=== PATIENT | female | born 1970 | race Caucasian/White ===

== ENCOUNTER 2020-09-07 19:25 | Inpatient (IN) | payer OTHER, SELFPAY ==
[~2020-09-07] VITALS: Ht 162.6 cm; Wt 125.2 kg
--- NOTE | 2020-09-07 19:34 | NUR ---
PT CHAZ BOJORQUEZS. TAKEN TO TENT
[2020-09-07 19:40] VITALS: BP 124/89
--- NOTE | 2020-09-07 20:40 | NUR ---
ASK THE FAMILY MEMBERS TO BRING THE LIST OF MEDICATIONS.
[2020-09-07 20:41] LABS: BASOPHILS % (AUTO) 0.1 % (0.0-2.0); HEMATOCRIT 40.4 % (36-48); HEMOGLOBIN 13.4 g/dL (12.0-16.0); LYMPHOCYTES # (AUTO) 0.8 K/uL (2.5-16.5); LYMPHOCYTES % (AUTO) 8.9 % (20.5-51.1); MEAN CORPUSCULAR HEMOGLOBIN 27 pg (27-31); MEAN CORPUSCULAR HGB CONC 33 g/dL (33-37); MEAN CORPUSCULAR VOLUME 79.7 fL (80-94); MONOCYTES # (AUTO) 0.6 K/uL (0.8-1.0); MONOCYTES % (AUTO) 6.9 % (1.7-9.3); NEUTROPHILS # (AUTO) 7.3 K/uL (1.8-7.7); NEUTROPHILS % (AUTO) 84.1 % (42.2-75.2); PLATELET COUNT (AUTO) 272 K/uL (140-450); RED BLOOD CELL COUNT(AUTO) 5.06 MIL/uL (4.20-5.40); RED CELL DISTRIBUTION WIDTH 16.4 % (11.6-13.7); WHITE BLOOD COUNT (AUTO) 8.7 K/uL (4.8-10.8)
[2020-09-07 21:05] LABS: PROTHROMBIN TIME 10.3 secs (10.8-13.4)
[2020-09-07 21:09] LABS: ALBUMIN 2.6 g/dL (3.4-5.0); ANION GAP 20.6 (8-16); CARBON DIOXIDE 22.9 mmol/L (21-32); CREATININE 0.8 mg/dL (0.6-1.3); POTASSIUM 3.5 mmol/L (3.5-5.1); TOTAL BILIRUBIN 0.6 mg/dL (0.0-1.0)
[2020-09-07 21:15] LABS: C-REACTIVE PROTEIN QUANT 26.2 mg/dL (0.0-0.9)
[2020-09-07 21:33] LABS: LACTATE DEHYDROGENASE 448 U/L (81-234)
--- NOTE | 2020-09-07 22:13 | NUR ---
JOSY SWAB COLLECTED AND TAKEN TO LAB
[2020-09-07] MEDS ORDERED: METOCLOPRAMIDE 10 MG/2 ML INJ VIAL IVP PRN (22:35)
[2020-09-07] MEDS ORDERED: DEXTROSE 50% 50 ML SYR IVP PRN (22:40)
--- NOTE | 2020-09-08 00:58 | NUR ---
PT MOVED FROM TENT TO BED 3.
--- NOTE | 2020-09-08 01:00 | NUR ---
PT NOTED WITH O2 SAT AT 88% ON 10 L VIA NC. PT WAS PLACED ON NON-REBREATHER AT 10 L OF OXYGEN. SPO2 AT 93% TOLERATING WELL.
--- NOTE | 2020-09-08 01:47 | NUR ---
20 G IV SITE ESTABLISHED TO L AC. SITE WAS PATENT FLUSHED WITH 10 ML OF 0.9% NS. NO SWELLING, REDNESS OR C/O DISCOMFORT.
--- NOTE | 2020-09-08 01:49 | NUR ---
PT STATES, "I CANNOT GO TO THE BATHROOM RIGHT NOW BUT I WILL CALL YOU". WILL CONTINUE TO MONITOR.
--- NOTE | 2020-09-08 03:11 | NUR ---
HELPED PT TO BEDSIDE COMMODE, UA COLLECTED AND TAKEN TO LAB.
--- NOTE | 2020-09-08 03:15 | NUR ---
PT C/O SEVERE ANXIETY R/T FEELING OF BEING "UNABLE TO BREATH". PAGED DR. DUMONT AT . [facility]ER STATED SHE WILL PAGE
[2020-09-08 03:17] LABS: APPEARANCE,URINE SL CLOUDY (CLEAR); BILIRUBIN,URINE 1+ (NEGATIVE); BLOOD, URINE 3+ (NEGATIVE); COLOR,URINE YELLOW (YELLOW); LEUKOCYTE ESTERASE ,URINE NEGATIVE (NEGATIVE); NITRITE, URINE NEGATIVE (NEGATIVE); UGLUCOSE 2+ (NEGATIVE)
--- NOTE | 2020-09-08 03:18 | NUR ---
RECEIVED PAGED FROM DR. YAN AND GAVE NEW ORDER FOR XANAX 0.25MG X 1 NOW.
[2020-09-08] MEDS ORDERED: ALPRAZolam 0.25 MG TAB PO SCH (03:20)
[2020-09-08] MEDS ORDERED: ALPRAZolam 0.5 MG TAB ONE (03:22)
[2020-09-08 03:29] LABS: RBC,URINE TOO NUMEROUS TO COUN /HPF (0-5); WBC,URINE 0-5 /HPF (0-5)
--- NOTE | 2020-09-08 04:16 | NUR ---
RESIDENTIAL RECYCLE DRIVER MICHELINE AT BEDSIDE FOR BLOOD DRAW.
--- NOTE | 2020-09-08 05:05 | NUR ---
PT SITTING IN BED QUIETLY AT THIS TIME, VSS. NO C/O RESTLESNESS/ANXIETY. SPO2 AT 93% VIA NON-REBREATHER AT 7 L OF OXYGEN. HEART SOUNDS EVEN AND REGULAR. OM CARDIAC MONITORING, PULSE OXIMETRY AND BP MONITORING. ALL NEEDS MEET PRIOR TO EXIT. BED LOCKED AND LEFT IN LOWEST POSITION.
[2020-09-08 06:20] LABS: BASOPHILS % (AUTO) 0.2 % (0.0-2.0); HEMATOCRIT 41.8 % (36-48); HEMOGLOBIN 13.9 g/dL (12.0-16.0); LYMPHOCYTES # (AUTO) 0.8 K/uL (2.5-16.5); LYMPHOCYTES % (AUTO) 11.3 % (20.5-51.1); MEAN CORPUSCULAR HEMOGLOBIN 27 pg (27-31); MEAN CORPUSCULAR HGB CONC 33 g/dL (33-37); MONOCYTES # (AUTO) 0.8 K/uL (0.8-1.0); MONOCYTES % (AUTO) 10.1 % (1.7-9.3); NEUTROPHILS # (AUTO) 5.9 K/uL (1.8-7.7); NEUTROPHILS % (AUTO) 78.4 % (42.2-75.2); PLATELET COUNT (AUTO) 268 K/uL (140-450); RED BLOOD CELL COUNT(AUTO) 5.23 MIL/uL (4.20-5.40); WHITE BLOOD COUNT (AUTO) 7.5 K/uL (4.8-10.8)
--- NOTE | 2020-09-08 06:25 | NUR ---
NOVAL PCR, INFLUENZA A & B, AND RSV SWABS COLLECTED AND SENT TO LAB.
--- NOTE | 2020-09-08 07:18 | NUR ---
REPORT GIVEN TO TOMAS DYSON FOR CONTINUITY OF CARE.
[2020-09-08 07:38] LABS: ALBUMIN 2.5 g/dL (3.4-5.0); ANION GAP 22.3 (8-16); CARBON DIOXIDE 20.9 mmol/L (21-32); CREATININE 0.8 mg/dL (0.6-1.3); POTASSIUM 3.2 mmol/L (3.5-5.1); TOTAL BILIRUBIN 0.6 mg/dL (0.0-1.0)
[2020-09-08] MEDS: BUDESONIDE 0.5 MG/2 ML NEBU INH SCH ×2 (07:41→19:30)
[2020-09-08] MEDS: ALBUTEROL SULFATE/IPRATROPIU 3 ML SOL IH SCH ×3 (07:41→19:00)
[2020-09-08] MEDS ORDERED: remdesivir COMMUNICATION ORDER 1 EA MISC MC PRN (07:55)
[2020-09-08] MEDS: INSULIN LANTUS 100 UNITS/ML 10 ML VIAL SUBQ SCH ×2 (09:00→21:00)
[2020-09-08] MEDS ORDERED: LOVENOX 1MG/KG Q12H SUBQ SCH ×2 (09:00→21:00)
[2020-09-08] MEDS: BLOOD GLUCOSE MONITORING 1 DEV DEV FS SCH ×4 (09:48→21:00)
[2020-09-08] MEDS: DOCUSATE SODIUM 100 MG GELCAP PO SCH (09:53)
[2020-09-08] MEDS: FAMOTIDINE 20 MG TAB PO SCH ×2 (09:53→21:00)
[2020-09-08] MEDS: INSULIN LISPRO SLIDING SCALE 100 UNITS/ML VIAL SUBQ PRN ×4 (10:05→21:00)
[2020-09-08] MEDS: ENOXAPARIN 120 MG/0.8 ML SYR SUBQ SCH ×2 (10:06→21:00)
[2020-09-08 10:09] LABS: RSV NEGATIVE (NEGATIVE)
[2020-09-08] MEDS: ACETAMINOPHEN 325 MG TAB PO PRN (10:21)
--- NOTE | 2020-09-08 10:31 | NUR ---
MEDICATED WITH 650MG TYLENOL PO FOR BUTTOCK PAIN. PT REPOSITIONED RIGHT SIDE
[2020-09-08] MEDS ORDERED: remdesivir CLINICAL MONITORING 1 EA MISC MC PRN (11:50)
--- NOTE | 2020-09-08 13:48 | NUR ---
PT UP AND VOIDED PER BED BEAL 1300CC OUT PUT. LEFT AC PIV PT STATES HURTS IV DCD CATH INTACT DRSG APPLIED NEW 20G PIV TO LEFT HAND X1 WITHOUT INCIDENT
[2020-09-08] MEDS ORDERED: REMDESIVIR (EUA) 200 MG in NACL 0.9% 100 ML IV SCH (14:00)
[2020-09-08] MEDS ORDERED: FLUCONAZOLE 100 MG TAB PO SCH (15:40)
[2020-09-08] MEDS: LORazepam 1 MG TAB PO PRN (15:47)
[2020-09-08] MEDS: NYSTATIN CRE 100 MU/GM 15 GM TUBE TP SCH (16:26)
--- NOTE | 2020-09-08 19:30 | NUR ---
RECEIVED REPORT FROM TOMAS DYSON FOR CONTINUITY OF CARE.
--- NOTE | 2020-09-08 20:00 | NUR ---
PT PRESENTS SITTING IN BED, IN NO ACUTE DISTRESS NOTED. BREATHING EVEN AND UNLABORED EVIDENCE BY RISE AND FALL OF CHEST WALL. ON A NON-REBREATHER AT 15 L OF OXYGEN O2 SAT AT 94%. NO FLUIDS AT THIS TIME. REMAINS ON CARDIAC MONITORING, BP MONITORING AND PULSE OXIMETRY. BED LOCKED AND IN LOWEST POSITION.
--- NOTE | 2020-09-08 20:05 | NUR ---
PT WAS RE-OFFERED HER DINNER AT THIS TIME. STATES, "NO I AM OKAY I DONT WANT IT".
--- NOTE | 2020-09-08 20:07 | NUR ---
PT WAS GIVEN A FRESH PITCHER OF COLD WATER PER REQUEST.
--- NOTE | 2020-09-08 20:54 | NUR ---
PT WAS ASSISTED TO BEDSIDE COMMODE. PT TOLERATED WELL VOIDED 300 ML OF YELLOW URINE. PT WAS PLACED AGAIN ON BEDSIDE MONITORING. WILL CONTINUE TO MONITOR.
--- NOTE | 2020-09-08 22:54 | NUR ---
PT LAYING IN BED AT THIS TIME BREATHING EVEN AND UNLABORED EVIDENCE BY RISE AND FALL OF CHEST WALL. ON NON-REBREATHER MASK AT THIS TIME 15 L OF OXYGEN. O2 SAT 94%. HEART RATE 114. DENIES HAVING ANY C/O PAIN OR DISCOMFORT AT THIS TIME ADJUSTED THE HOB TO COMFORTABLE HEIGHT. REMAINS ON BEDSIDE MONITORING. WILL CONT TO MONITOR, CALL LIGHT WITHIN REACH. ALL NEEDS MEET PRIOR TO EXIT.
--- NOTE | 2020-09-09 00:34 | NUR ---
PT LAYING IN BED AT THIS TIME BREATHING EVEN AND UNLABORED EVIDENCE BY RISE AND FALL OF CHEST WALL. ON NON-REBREATHER MASK AT THIS TIME 15 L OF OXYGEN. O2 SAT 92%. HEART RATE 118. DENIES HAVING ANY C/O PAIN OR DISCOMFORT AT THIS TIME ADJUSTED THE HOB TO COMFORTABLE HEIGHT. REMAINS ON BEDSIDE MONITORING. WILL CONT TO MONITOR, CALL LIGHT WITHIN REACH. ALL NEEDS MEET PRIOR TO EXIT.
[2020-09-09] MEDS: ALBUTEROL SULFATE/IPRATROPIU 3 ML SOL IH SCH ×5 (01:00→19:00)
--- NOTE | 2020-09-09 01:25 | NUR ---
HELPED PT TO BEDSIDE COMMODE. TOLERATED WELL.
--- NOTE | 2020-09-09 02:45 | NUR ---
PT WAS GIVEN A FRESH PITCHER OF COLD WATER PER REQUEST.
--- NOTE | 2020-09-09 03:05 | NUR ---
PT LAYING IN BED AT THIS TIME BREATHING EVEN AND UNLABORED EVIDENCE BY RISE AND FALL OF CHEST WALL. ON NON-REBREATHER MASK AT THIS TIME 15 L OF OXYGEN. O2 SAT 95%. HEART RATE 106. DENIES HAVING ANY C/O PAIN OR DISCOMFORT AT THIS TIME ADJUSTED THE HOB TO COMFORTABLE HEIGHT. REMAINS ON BEDSIDE MONITORING. WILL CONT TO MONITOR, CALL LIGHT WITHIN REACH. ALL NEEDS MEET PRIOR TO EXIT.
--- NOTE | 2020-09-09 03:45 | NUR ---
HELPED PT TO BEDSIDE COMMODE. TOLERATED WELL.
--- NOTE | 2020-09-09 05:21 | NUR ---
PT LAYING IN BED AT THIS TIME BREATHING EVEN AND UNLABORED EVIDENCE BY RISE AND FALL OF CHEST WALL. ON NON-REBREATHER MASK AT THIS TIME 15 L OF OXYGEN. O2 SAT 93%. HEART RATE 102. DENIES HAVING ANY C/O PAIN OR DISCOMFORT AT THIS TIME ADJUSTED THE HOB TO COMFORTABLE HEIGHT. REMAINS ON BEDSIDE MONITORING. WILL CONT TO MONITOR, CALL LIGHT WITHIN REACH. ALL NEEDS MEET PRIOR TO EXIT.
--- NOTE | 2020-09-09 06:03 | NUR ---
HELPED PT TO BEDSIDE COMMODE. TOLERATED WELL.
--- NOTE | 2020-09-09 07:20 | NUR ---
REPORT GIVEN TO LALIT DYSON FOR CONTINUITY OF CARE.
[2020-09-09] MEDS: BLOOD GLUCOSE MONITORING 1 DEV DEV FS SCH ×4 (07:30→21:00)
[2020-09-09] MEDS: BUDESONIDE 0.5 MG/2 ML NEBU INH SCH ×3 (07:30→19:30)
[2020-09-09] MEDS: INSULIN LANTUS 100 UNITS/ML 10 ML VIAL SUBQ SCH ×2 (09:00→21:00)
[2020-09-09] MEDS: DOCUSATE SODIUM 100 MG GELCAP PO SCH (09:00)
[2020-09-09] MEDS: NYSTATIN CRE 100 MU/GM 15 GM TUBE TP SCH ×3 (09:00→17:40)
[2020-09-09] MEDS: ENOXAPARIN 120 MG/0.8 ML SYR SUBQ SCH ×2 (09:06→21:00)
[2020-09-09] MEDS: FAMOTIDINE 20 MG TAB PO SCH ×2 (09:07→21:00)
[2020-09-09] MEDS: DEXAMETHASONE 10 MG/ML VIAL IVP SCH (09:08)
--- NOTE | 2020-09-09 09:30 | NUR ---
Stable. Admitted. Requires 100% NR to keep Sat adequate . Has been admitted Report to floor Ambulated to Placed in bed Nurse aware
--- NOTE | 2020-09-09 09:39 | NUR ---
PATIENT HAS BEEN SCREENED AND CATEGORIZED MODERATE NUTRITION RISK. PATIENT WILL BE SEEN WITHIN 3-5 DAYS OF ADMISSION. 09/10/20 - 09/12/[address]
[2020-09-09 10:30] VITALS: BP 148/79
--- NOTE | 2020-09-09 10:30 | NUR ---
PATIENT ARRIVED FROM ER. AAOX4, CALM, COOPERATIVE, ON NRB 15L/MIN. IN STABLE CONDITION. ORIENTED PATIENT TO ROOM AND CALL LIGHT. SAFETY MEASURES IN PLACE, WILL CONTINUE TO MONITOR.
--- NOTE | 2020-09-09 11:01 | NUR ---
0700 HHN THERAPY LATE PATIENT TRANSFERRED FROM ER-3 TO 100-B 0700 THERAPY GIVEN AT THIS TIME NOTED
[2020-09-09] MEDS: LORazepam 1 MG TAB PO PRN (11:26)
[2020-09-09] MEDS: INSULIN LISPRO SLIDING SCALE 100 UNITS/ML VIAL SUBQ PRN ×2 (12:20→17:39)
--- NOTE | 2020-09-09 12:20 | NUR ---
SCHEDULED MEDICATIONS DUE GIVEN. WILL CONTINUE TO MONITOR.
[2020-09-09 13:50] LABS: BASOPHILS % (AUTO) 0.1 % (0.0-2.0); HEMATOCRIT 41.9 % (36-48); HEMOGLOBIN 13.8 g/dL (12.0-16.0); LYMPHOCYTES # (AUTO) 0.2 K/uL (2.5-16.5); LYMPHOCYTES % (AUTO) 3.3 % (20.5-51.1); MEAN CORPUSCULAR HEMOGLOBIN 27 pg (27-31); MEAN CORPUSCULAR HGB CONC 33 g/dL (33-37); MEAN CORPUSCULAR VOLUME 80.7 fL (80-94); MONOCYTES # (AUTO) 0.1 K/uL (0.8-1.0); NEUTROPHILS # (AUTO) 6.6 K/uL (1.8-7.7); NEUTROPHILS % (AUTO) 94.6 % (42.2-75.2); PLATELET COUNT (AUTO) 359 K/uL (140-450); RED BLOOD CELL COUNT(AUTO) 5.19 MIL/uL (4.20-5.40); RED CELL DISTRIBUTION WIDTH 16.4 % (11.6-13.7)
[2020-09-09] MEDS: REMDESIVIR (EUA) 100 MG in NACL 0.9% 100 ML IV SCH (14:00)
[2020-09-09 14:01] LABS: ALBUMIN 2.3 g/dL (3.4-5.0); ANION GAP 23.4 (8-16); CARBON DIOXIDE 18.9 mmol/L (21-32); CREATININE 0.8 mg/dL (0.6-1.3); POTASSIUM 3.3 mmol/L (3.5-5.1); TOTAL BILIRUBIN 0.8 mg/dL (0.0-1.0)
--- NOTE | 2020-09-09 15:00 | NUR ---
ATTEMPTED TO INSERT ROMO CATHETER, TOO PAINFUL UPON TRYING TO INSERT CATHETER INTO URETHRA PER PATIENT. PATIENT REFUSES FOR ANOTHER ATTEMPT AT THIS TIME. WILL CONTINUE TO MONITOR.
[2020-09-09 16:00] VITALS: BP 134/74
--- NOTE | 2020-09-09 17:40 | NUR ---
SCHEDULED MEDICATIONS DUE GIVEN. WILL CONTINUE TO MONITOR.
--- NOTE | 2020-09-09 18:55 | NUR ---
2 UNIT CONVALESCENT PLASMA GIVEN. NO REACTION NOTED. WILL CONTINUE TO MONITOR.
--- NOTE | 2020-09-09 19:40 | NUR ---
GAVE REPORT TO FABRIC COATING SUPERVISOR NURSE FOR CONTINUITY OF CARE. PATIENT IN STABLE CONDITION.
[2020-09-09 20:00] VITALS: BP 133/80
[2020-09-10] VITALS (7 sets, daily range): BP systolic 121–141; BP diastolic 55–76
[2020-09-10] MEDS: INSULIN LISPRO SLIDING SCALE 100 UNITS/ML VIAL SUBQ PRN ×4 (00:24→17:48)
[2020-09-10] MEDS: LORazepam 1 MG TAB PO PRN (00:27)
[2020-09-10] MEDS: ALBUTEROL SULFATE/IPRATROPIU 3 ML SOL IH SCH ×4 (01:00→19:00)
--- NOTE | 2020-09-10 07:06 | NUR ---
NO HHN BREATHING TX GIVEN PER COVID PROTOCOL
[2020-09-10] MEDS: BUDESONIDE 0.5 MG/2 ML NEBU INH SCH ×2 (07:07→19:30)
[2020-09-10] MEDS: BLOOD GLUCOSE MONITORING 1 DEV DEV FS SCH ×4 (07:30→21:00)
--- NOTE | 2020-09-10 08:30 | NUR ---
PATIENT COMPLAINS OF ROMO CATH BURNING, PT WANTS IT OUT. ROMO CATH REMOVED AT THIS TIME.
[2020-09-10] MEDS: NYSTATIN CRE 100 MU/GM 15 GM TUBE TP SCH ×3 (09:00→17:00)
[2020-09-10] MEDS: DOCUSATE SODIUM 100 MG GELCAP PO SCH (09:50)
[2020-09-10] MEDS: DEXAMETHASONE 10 MG/ML VIAL IVP SCH (09:50)
[2020-09-10] MEDS: FAMOTIDINE 20 MG TAB PO SCH ×2 (09:51→21:00)
[2020-09-10] MEDS: INSULIN LANTUS 100 UNITS/ML 10 ML VIAL SUBQ SCH ×2 (10:00→21:00)
--- NOTE | 2020-09-10 10:00 | NUR ---
SCHEDULED MEDICATIONS DUE GIVEN. WILL CONTINUE TO MONITOR.
[2020-09-10] MEDS: ENOXAPARIN 120 MG/0.8 ML SYR SUBQ SCH ×2 (10:02→21:00)
--- NOTE | 2020-09-10 12:30 | NUR ---
ASSISTED PATIENT TO THE COMMODE AND BACK TO BED. WILL CONTINUE TO MONITOR.
[2020-09-10] MEDS: REMDESIVIR (EUA) 100 MG in NACL 0.9% 100 ML IV SCH (14:21)
--- NOTE | 2020-09-10 19:35 | NUR ---
GAVE REPORT TO WINDOW CASER NURSE FOR CONTINUITY OF CARE. PATIENT IN STABLE CONDITION.
--- NOTE | 2020-09-10 19:40 | NUR ---
GAVE REPORT TO LOGISTICS MANAGEMENT SPECIALIST NURSE FOR CONTINUITY OF CARE. PATIENT IN CRITICAL CONDITION. Addendum: 09/10/20 at 2005 by Charlie Dozier RN PLS DISREGARD NOTE ABOVE, WRONG PATIENT.
[2020-09-11] VITALS: BP_SYST 116; BP_SYST 128; BP_DIAS 40; BP_DIAS 71
[2020-09-11] MEDS: INSULIN LISPRO SLIDING SCALE 100 UNITS/ML VIAL SUBQ PRN ×3 (00:19→17:09)
[2020-09-11] MEDS: ALBUTEROL SULFATE/IPRATROPIU 3 ML SOL IH SCH ×3 (01:00→13:00)
[2020-09-11] MEDS: LORazepam 1 MG TAB PO PRN ×2 (03:23→23:09)
[2020-09-11 04:00] VITALS: BP 124/80
[2020-09-11] MEDS: BUDESONIDE 0.5 MG/2 ML NEBU INH SCH (07:30)
--- NOTE | 2020-09-11 07:49 | NUR ---
NO HHN GIVEN DUE TO COVID PROTOCOL
[2020-09-11 08:00] VITALS: BP 138/70
[2020-09-11] MEDS: FAMOTIDINE 20 MG TAB PO SCH ×2 (08:53→21:47)
[2020-09-11] MEDS: DOCUSATE SODIUM 100 MG GELCAP PO SCH (08:53)
[2020-09-11] MEDS: INSULIN LANTUS 100 UNITS/ML 10 ML VIAL SUBQ SCH ×2 (08:54→21:55)
[2020-09-11] MEDS: ENOXAPARIN 120 MG/0.8 ML SYR SUBQ SCH ×2 (08:55→21:36)
[2020-09-11] MEDS: DEXAMETHASONE 10 MG/ML VIAL IVP SCH (08:57)
[2020-09-11] MEDS: NYSTATIN CRE 100 MU/GM 15 GM TUBE TP SCH ×3 (09:09→17:02)
[2020-09-11] MEDS: BLOOD GLUCOSE MONITORING 1 DEV DEV FS SCH ×4 (09:09→21:48)
--- NOTE | 2020-09-11 09:10 | NUR ---
ADMINISTERED SCHEDULED MEDICATION, MEDICATION EDUCATION PROVIDED. INFORMED PT SHE NEEDED TO TAKE BLANKET OFF HER TEMPERATURE WAS SLIGHTLY ELEVATED, PER PT SHE WANTS HER BLANKET AND DOESN'T CARE. PT TOLERATED MEDS OKAY, PT IS STABLE, WILL CONTINUE TO MONITOR.
[2020-09-11 09:27] LABS: ALBUMIN 2.2 g/dL (3.4-5.0); ANION GAP 16.1 (8-16); CARBON DIOXIDE 24.6 mmol/L (21-32); CREATININE 0.6 mg/dL (0.6-1.3); TOTAL BILIRUBIN 0.6 mg/dL (0.0-1.0)
[2020-09-11 09:37] LABS: POTASSIUM 2.7 mmol/L (3.5-5.1)
[2020-09-11 09:58] LABS: BASOPHILS % (AUTO) 0.7 % (0.0-2.0); EOSINOPHILS % (AUTO) 0.2 % (0.0-4.0); HEMATOCRIT 41.7 % (36-48); HEMOGLOBIN 13.6 g/dL (12.0-16.0); LYMPHOCYTES # (AUTO) 0.9 K/uL (2.5-16.5); LYMPHOCYTES % (AUTO) 14.1 % (20.5-51.1); MEAN CORPUSCULAR HEMOGLOBIN 26 pg (27-31); MEAN CORPUSCULAR HGB CONC 33 g/dL (33-37); MEAN CORPUSCULAR VOLUME 80.4 fL (80-94); MONOCYTES # (AUTO) 0.2 K/uL (0.8-1.0); MONOCYTES % (AUTO) 3.5 % (1.7-9.3); NEUTROPHILS # (AUTO) 5.1 K/uL (1.8-7.7); NEUTROPHILS % (AUTO) 81.5 % (42.2-75.2); PLATELET COUNT (AUTO) 414 K/uL (140-450); RED BLOOD CELL COUNT(AUTO) 5.19 MIL/uL (4.20-5.40); RED CELL DISTRIBUTION WIDTH 16.3 % (11.6-13.7); WHITE BLOOD COUNT (AUTO) 6.3 K/uL (4.8-10.8)
--- NOTE | 2020-09-11 11:09 | NUR ---
RECEIVED TORB ORDER FROM DR AGUILAR FOR K DUR POTASSIUM 40 MEQ PO, WILL INPUT ORDER AND CARRY IT OUT.
[2020-09-11] MEDS ORDERED: POTASSIUM CHLORIDE 10 MEQ TABER PO SCH (11:30)
--- NOTE | 2020-09-11 11:34 | NUR ---
changed nrb mask and o2 sat are 86%
[2020-09-11] MEDS: ACETAMINOPHEN 325 MG TAB PO PRN (11:58)
[2020-09-11 12:00] VITALS: BP 139/84
--- NOTE | 2020-09-11 12:03 | NUR ---
ADMINISTERED SCHEDULED MEDS, 2 UNITS OF HUMALOG FOR BLOOD GLUCOSE OF 186, TYLENOL FOR FEVER OF 186, MED EDUCTION PROVIDED. PT TOLERATED WELL. PT IS STABLE, WILL CONTINUE TO MONITOR.
[2020-09-11] MEDS: REMDESIVIR (EUA) 100 MG in NACL 0.9% 100 ML IV SCH (13:58)
--- NOTE | 2020-09-11 14:06 | NUR ---
ADMINISTERED SCHEDULED MEDICATION, MEDICATION EDUCATION PROVIDED. PT TOLERATED WELL. PT IS STABLE, WILL CONTINUE TO MONITOR.
[2020-09-11 16:00] VITALS: BP 136/92
--- NOTE | 2020-09-11 17:09 | NUR ---
ADMINISTERED SCHEDULED MEDICATION, 6 UNITS OF HUMALOG FOR BLOOD GLUCOSE OF 253, MEDICATION EDUCATION PROVIDED. PT TOLERATED WELL. PT IS STABLE, WILL CONTINUE TO MONITOR.
--- NOTE | 2020-09-11 18:59 | NUR ---
NOTIFIED DR AGUILAR PT IS COMPLAINING OF CHEST PAIN FROM COUGH, REQUESTING PAIN MEDICATION, WILL AWAIT ORDERS AND ENDORSE TO NIGHT NURSE
--- NOTE | 2020-09-11 19:05 | NUR ---
ENDORSE PT TO NIGHT NURSE FOR CONTINUITY OF CARE, PT IS STABLE.
--- NOTE | 2020-09-11 19:30 | NUR ---
RECEIVED ENDORSEMENT REPORT FROM RACHAEL CAGE AT BEDSIDE FOR CONTINUITY OF CARE, AOX3 LYING IN BED WITH 15 LITERS NON REBREATHER. SHE HAS A LEFT HAND 20GUAGE INTACT AND RUNNING N/S TO TO KVO. PT HAS NO C/O VOICED AT THIS TIME.
[2020-09-11 20:00] VITALS: BP 103/86
--- NOTE | 2020-09-11 20:12 | NUR ---
PT C/O SOB, 02 STAT IS 85% OF O2 ON 15 LITERS NON REBREATHER HOB ELEVATED 45%. PT ENCOURAGED TO PRONE POSITION, 02 WENT UP TO 92%. OTHER V/S FOLLOWS: T 98.7 P 118 RR 24 BPM B/P 130/86. WILL CONTINUE TO MONITOR.
--- NOTE | 2020-09-11 22:03 | NUR ---
PT STATING IN MID 80'S ABOUT 86% 02, RT MADE AWARE, PT ENCOURAGED TO PRONE AGAIN, PT DECLINED AT THIS TIME. RT SAID SHE HAD TO GO TO ER AT THIS TIME AND WILL BE BACK TO CHECK ON PT.
--- NOTE | 2020-09-11 23:00 | NUR ---
RT PLACED PT ON 40 LITERS HI FLOW 02 IS 100%.
--- NOTE | 2020-09-11 23:05 | NUR ---
PT DESAT AND WAS PLACED ON HFNC 40L 100%. PT CONFIRMED SHE FEELS A BIT ANXIOUS AND WAS CALMED/RE-ASSURED AFTER SOME TIME PT SPO2 ROSALBA TO 88% BUT NRB WAS NEEDED. PT WAS TOLERATING SOMEWHAT WELL UPON MY DEPARTURE. WILL CONTINUE TO MONITOR
--- NOTE | 2020-09-11 23:22 | NUR ---
02 DROPPING WENT DOWN TO 76, 15 LITERS NON REBREATHER ADDED 02 IS NOW 85%, PT GIVEN PO ATIVAN FOR ANXIETY WILL CONTINUE TO MONITOR 02.
[2020-09-12] VITALS: BP 146/72
[2020-09-12] MEDS: ACETAMINOPHEN 325 MG TAB PO PRN (02:20)
--- NOTE | 2020-09-12 02:20 | NUR ---
PT GIVEN TYLENOL FOR GENERALIZED DISCOMFORT AND AN INCREASED TEMP OF 99.9. COOLING MEASURES PROVIDED.
[2020-09-12 04:00] VITALS: BP 117/69
[2020-09-12] MEDS: BLOOD GLUCOSE MONITORING 1 DEV DEV FS SCH ×4 (05:37→21:00)
[2020-09-12] MEDS: INSULIN LISPRO SLIDING SCALE 100 UNITS/ML VIAL SUBQ PRN ×3 (06:11→16:25)
--- NOTE | 2020-09-12 07:06 | NUR ---
pt is self disconnecting herself from high flow nc and nrb found pt off o2 and o2 sat was 82% told pt to leave o2 on
--- NOTE | 2020-09-12 07:30 | NUR ---
RECEIVED REPORT FROM NIGHT NURSE PATIENT IS AAOX4, WITH REDNESS ON THE ABDOMINAL FOLDS, SINUS TACHYCARDIA LABORER COOK HOUSE, ON 15LPM NON REBREATHER MASK SATURATION AT 80-90% AND HIGH FLOW 40L. LATEST BLOOD SUGAR 164 MG/DL, STARTED ON REMDESIVIR AND CONSENTED TO PLASMA, POTASSIUM LEVEL AT 2.7 AND NO MEDICATION GIVEN. SAFETY MEASURES IN PLACE AND CALL LIGHT WITH IN REACH WILL CONTINUE TO MONITOR.
[2020-09-12 08:00] VITALS: BP 153/80
--- NOTE | 2020-09-12 08:40 | NUR ---
09/12/20 RD INITIAL ASSESSMENT COMPLETED PLEASE REFER TO NUTRITION ASSESSMENT UNDER CARE ACTIVITY FOR ESTIMATED NUTRITIONAL NEEDS. RD RECOMMENDATIONS: 1. RECOMMEND CONTINUE 60GM CCHO DIET. 2. SUPPLEMENT DIET WITH DIET HEALTHSHAKES TID 3. ENCOURAGE INCREASED PO INTAKE. 4. F/U 3-5DAYS; MODERATE RISK RETA WIGGINS MBA, RD
[2020-09-12 08:45] LABS: BASOPHILS % (AUTO) 0.3 % (0.0-2.0); EOSINOPHILS # (AUTO) 0.1 K/uL (0-0.4); EOSINOPHILS % (AUTO) 1.4 % (0.0-4.0); HEMATOCRIT 41.7 % (36-48); HEMOGLOBIN 13.7 g/dL (12.0-16.0); LYMPHOCYTES # (AUTO) 0.6 K/uL (2.5-16.5); LYMPHOCYTES % (AUTO) 11.4 % (20.5-51.1); MEAN CORPUSCULAR HEMOGLOBIN 26 pg (27-31); MEAN CORPUSCULAR HGB CONC 33 g/dL (33-37); MEAN CORPUSCULAR VOLUME 79.7 fL (80-94); MONOCYTES # (AUTO) 0.2 K/uL (0.8-1.0); MONOCYTES % (AUTO) 3.2 % (1.7-9.3); NEUTROPHILS # (AUTO) 4.5 K/uL (1.8-7.7); NEUTROPHILS % (AUTO) 83.7 % (42.2-75.2); PLATELET COUNT (AUTO) 450 K/uL (140-450); RED BLOOD CELL COUNT(AUTO) 5.23 MIL/uL (4.20-5.40); RED CELL DISTRIBUTION WIDTH 16.3 % (11.6-13.7); WHITE BLOOD COUNT (AUTO) 5.4 K/uL (4.8-10.8)
[2020-09-12 09:00] LABS: ANION GAP 14.2 (8-16); CARBON DIOXIDE 24.6 mmol/L (21-32); CREATININE 0.6 mg/dL (0.6-1.3); TOTAL BILIRUBIN 0.7 mg/dL (0.0-1.0)
[2020-09-12] MEDS: DEXAMETHASONE 10 MG/ML VIAL IVP SCH (09:25)
[2020-09-12] MEDS: DOCUSATE SODIUM 100 MG GELCAP PO SCH (09:25)
[2020-09-12] MEDS: FAMOTIDINE 20 MG TAB PO SCH ×2 (09:25→22:37)
--- NOTE | 2020-09-12 09:25 | NUR ---
MEDICATION DUE GIVEN AND CHECK VITAL SIGNS PRIOR TO MEDICATION PATIENT AT 845 OXYGEN SATURATION.
[2020-09-12] MEDS: INSULIN LANTUS 100 UNITS/ML 10 ML VIAL SUBQ SCH ×2 (09:27→22:45)
[2020-09-12] MEDS: NYSTATIN CRE 100 MU/GM 15 GM TUBE TP SCH ×3 (09:36→16:10)
[2020-09-12 10:04] LABS: POTASSIUM 2.8 mmol/L (3.5-5.1)
[2020-09-12] MEDS: ENOXAPARIN 120 MG/0.8 ML SYR SUBQ SCH ×2 (10:37→22:43)
--- NOTE | 2020-09-12 11:30 | NUR ---
BLOOD SUGAR 187 MG/DL INSULIN COVERAGE GIVEN
[2020-09-12 12:00] VITALS: BP 150/67
--- NOTE | 2020-09-12 12:15 | NUR ---
SPOKE WITH CONCERNING PLACING HER ON BIPAP PER , EXPLAINED TO PT WHAT IS WAS GOING TO HAPPEN , PER MS. MICHELE SHE STATED THAT SHE WAS VERY CLAUSTROPHOBIC AND WOULD NOT WEAR BIPAP I EXPLAINED TO PT THAT THIS WOULD HELP HER BREATH EASIER, SHE ONCE AGAIN SAID NO, I CALLED AT 1245 AND EXPLAINED TO HIM WHAT THE PT HAD STATED TO ME CONCERNING BIPAP , SAID HE UNDERSTOOD AND TO LEAVE PT IS
--- NOTE | 2020-09-12 12:30 | NUR ---
PATIENT REFUSED TO BE PUT ON BIPAP PER RESPIRATORY THERAPIST AND DR REILLY AWARE.
--- NOTE | 2020-09-12 13:00 | NUR ---
MEDICATION DUE GIVEN AND POTASSIUM 40 MEQ GIVEN PATIENT POTASSIUM AT 2.8, DR BARONE
--- NOTE | 2020-09-12 14:00 | NUR ---
REMDESIVIR GIVEN AT THIS TIME INFUSING WELL OXYGEN SATURATION AT 82%
--- NOTE | 2020-09-12 14:10 | NUR ---
SOCIAL WORK NOTE: CRYSTAL CONTACTED PATIENT'S EMERGENCY CONTACT [phone] AND LEFT VM. [facility]YSTAL CONTACTED NURSE BUT NO CONTACTS WERE AVAILABLE. CRYSTAL WILL FOLLOW UP. Addendum: 09/13/20 at 1134 by Ciaran ARGUETA CRYSTAL LEFT ADDITIONAL VM. NO CONTACTS ARE STILL AVAILABLE. CRYSTAL WILL FOLLOW UP.
[2020-09-12] MEDS: REMDESIVIR (EUA) 100 MG in NACL 0.9% 100 ML IV SCH (14:14)
[2020-09-12] MEDS ORDERED: POTASSIUM CHLORIDE 10 MEQ TABER PO SCH (14:30)
--- NOTE | 2020-09-12 15:11 | NUR ---
MADE ROUNDS AND PATIENT OXYGEN SATURATION AT 88 %
[2020-09-12 16:00] VITALS: BP 144/68
[2020-09-12] MEDS ORDERED: POTASSIUM CHLORIDE 40 MEQ, LIDOCAINE MPF 1% 25 MG in NACL 0.9% 250 ML IV SCH (16:00)
--- NOTE | 2020-09-12 16:30 | NUR ---
BLOOD SUGAR AT 202 MG/DL INSULIN COVERAGE GIVEN AND MEDICATION DUE GIVEN.
[2020-09-12] MEDS: LORazepam 1 MG TAB PO PRN (16:51)
--- NOTE | 2020-09-12 16:56 | NUR ---
ATIVAN PO GIVEN PATIENT COMPLAINS OF ANXIETY CHECK VITAL SIGNS PRIOR TO MEDICATION BP 144/68 NM 119. PT IS STABLE.
--- NOTE | 2020-09-12 17:38 | NUR ---
POTASSIUM IV GIVEN INFUSING WELL
--- NOTE | 2020-09-12 19:00 | NUR ---
Patient received in bed alert and oriented x 3. RN educated to plan of care. Discussed medical plan of care. Fall and safety precautions. Medication regimen and medical plan of care. Patient receptive to RN plan of care. VSS. Patient receptive to RN plan of care.
--- NOTE | 2020-09-12 19:13 | NUR ---
ENDORSED TO NIGHT NURSE FOR CONTINUITY OF CARE. PT IS STABLE
[2020-09-12 20:00] VITALS: BP 163/92
--- NOTE | 2020-09-12 22:00 | NUR ---
PT FOUND W/ NRB ON FACE AND HFNC ON FLOOR NEXT TO BED W/ SPO2 AT THE TIME 74%. REPLACED HFNC ON PT AND PRONED PT SPO2 SLOWLY CLIMBED TO 84%. PT WAS ENCOURAGED TO KEEP HFNC ON. WILL CONTINUE TO MONITOR. Addendum: 09/13/20 at 0353 by Anthony Eckert Jr RT PT CONTINUES TO REFUSE BIPAP
[2020-09-13] VITALS (7 sets, daily range): BP systolic 119–159; BP diastolic 57–92
--- NOTE | 2020-09-13 | NUR ---
Patient sleeping during rounding, easily aroused. Medication regimen continued. No side effects noted. Assisted with ADLs as needed. Patient receptive to RN plan of care. No acute distress noted.
--- NOTE | 2020-09-13 00:45 | NUR ---
Message Dr. Kirby regarding patient heart rate trending upward in the 130s-140. Patient is asymptomatic. Patient alert and responsive. No complaint of pain or discomfort. Patient oxygen saturation 93%. respirations even and nonlabored. RN to continue with plan of care.
[2020-09-13] MEDS ORDERED: hydrALAZINE 20 MG/ML VIAL IVP PRN (02:15)
--- NOTE | 2020-09-13 07:30 | NUR ---
NURSE REPORT Received report from night nurse Ms Nickerson. and this nurse assumed care of patient until 1930. Hi flow O2 being given thru nonrebreather mask.
[2020-09-13] MEDS: BLOOD GLUCOSE MONITORING 1 DEV DEV FS SCH ×4 (08:16→20:52)
[2020-09-13 08:46] LABS: BASOPHILS % (AUTO) 0.3 % (0.0-2.0); EOSINOPHILS % (AUTO) 0.6 % (0.0-4.0); HEMATOCRIT 41.8 % (36-48); HEMOGLOBIN 13.8 g/dL (12.0-16.0); LYMPHOCYTES # (AUTO) 0.7 K/uL (2.5-16.5); LYMPHOCYTES % (AUTO) 8.7 % (20.5-51.1); MEAN CORPUSCULAR HEMOGLOBIN 26 pg (27-31); MEAN CORPUSCULAR HGB CONC 33 g/dL (33-37); MEAN CORPUSCULAR VOLUME 79.5 fL (80-94); MONOCYTES # (AUTO) 0.3 K/uL (0.8-1.0); MONOCYTES % (AUTO) 4.3 % (1.7-9.3); NEUTROPHILS # (AUTO) 6.7 K/uL (1.8-7.7); NEUTROPHILS % (AUTO) 86.1 % (42.2-75.2); PLATELET COUNT (AUTO) 482 K/uL (140-450); RED BLOOD CELL COUNT(AUTO) 5.25 MIL/uL (4.20-5.40); RED CELL DISTRIBUTION WIDTH 16.1 % (11.6-13.7); WHITE BLOOD COUNT (AUTO) 7.7 K/uL (4.8-10.8)
[2020-09-13 09:14] LABS: ANION GAP 14.5 (8-16); CARBON DIOXIDE 24.8 mmol/L (21-32); CREATININE 0.6 mg/dL (0.6-1.3); POTASSIUM 3.3 mmol/L (3.5-5.1)
[2020-09-13] MEDS: DOCUSATE SODIUM 100 MG GELCAP PO SCH (10:10)
[2020-09-13] MEDS: DEXAMETHASONE 10 MG/ML VIAL IVP SCH (10:11)
[2020-09-13] MEDS: FAMOTIDINE 20 MG TAB PO SCH ×2 (10:11→20:53)
[2020-09-13] MEDS: ENOXAPARIN 120 MG/0.8 ML SYR SUBQ SCH ×2 (10:12→20:54)
[2020-09-13] MEDS: INSULIN LANTUS 100 UNITS/ML 10 ML VIAL SUBQ SCH ×2 (10:14→21:00)
[2020-09-13] MEDS: INSULIN LISPRO SLIDING SCALE 100 UNITS/ML VIAL SUBQ PRN ×3 (13:07→20:55)
--- NOTE | 2020-09-13 19:20 | NUR ---
NURSE REPORT AND ENDORSEMENT Report given to night nurse Oscar. BG 276 and given Humalog insulin 6 units SQ
--- NOTE | 2020-09-13 19:50 | NUR ---
RECEIVED REPORT FROM MIKA RUIZ. PT AOX3 ON 40L HIFLOW WITH 15L NRB, NO S/S RESPIRATORY DISTRESS. IV SITE L HAND 20G PATENT INTACT, S.L. SAFETY MEASURES IN PLACE. CALL LIGHT WITHIN REACH. WILL CONTINUE TO MONITOR
[2020-09-13] MEDS ORDERED: HYDROcodone/APAP 5/325 MG 1 TAB TAB PO SCH (20:45)
--- NOTE | 2020-09-13 21:00 | NUR ---
ADMINISTERED SCHEDULED MEDS, TOLERATED WELL. WILL CONTINUE TO MONITOR
[2020-09-14] VITALS: BP 131/67
--- NOTE | 2020-09-14 03:23 | NUR ---
HIFLOW AND NRB IN PLACE, O2 SAT 82%, INSTRUCTED PT TO TAKE SLOW DEEP BREATHS, O2 SAT SLOWLY CLIMBING TO 88%, NO S/S ACUTE DISTRESS NOTED. WILL CONTINUE TO MONITOR
--- NOTE | 2020-09-14 03:55 | NUR ---
CALLED RT TO BEDSIDE, PT O2 SAT IN THE LOW TO MID 50S, PATIENT DENIES SOB, DENIES PAIN. PT REFUSED TO BE ON BIPAP. NO S/S ACUTE RESPIRATORY DISTRESS NOTED. WILL CONTINUE TO MONITOR
--- NOTE | 2020-09-14 04:00 | NUR ---
CALLED BY RN TO ASSESS PATIENT. PATIENT SATURATION WAS IN THE HIGH 50S LOW 60S. PATIENT OCCASIONALLY COMES BACK UP TO MID 80S.PATIENT REFUSES BIPAP.. RN AWARE. PATIENT IS NOT LABORED BREATHING. WILL CONT TO MONITOR CLOSELY
[2020-09-14] MEDS: BLOOD GLUCOSE MONITORING 1 DEV DEV FS SCH (06:05)
[2020-09-14] MEDS ORDERED: LORazepam 2 MG/ML VIAL ONE (06:18)
--- NOTE | 2020-09-14 06:55 | NUR ---
CALLED TO BEDSIDE DUE TO PT DESATURATING ON HFNC PLUS NON REBREATHER. PT WAS PLACED ON BiPAP SPO2 NOT IMPROVING. DEPUTY CONTROLLER CALLED. DR SLADE AT BEDSIDE. PT WAS GIVEN MEDS TO RELAX. PT REFUSED INTUBATION AT THIS TIME. PT WAS ASSISTED TO PRONE. BiPAP SETTINGS 22/16, 20, 100%. DOCTOR AWARE OF SETTINGS. WILL CONTINUE TO MONITOR.
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
--- NOTE | 2020-09-14 07:20 | NUR ---
PER NIGHT NURSE PT SIGNED DNR STATUS AND REFUSED TO BE INTUBATED. ER DOCTOR EXPLAINED RISK AND CONSEQUENCES, ATTENDING PAGED TO CHANGE FULL CODE TO DNR. POLST IN CHART
--- NOTE | 2020-09-14 07:30 | NUR ---
ENDORSED PT TO DAY RN FOR CONTINUITY OF CARE. PT IS IN STABLE CONDITION
--- NOTE | 2020-09-14 07:31 | NUR ---
RECEIVED REPORT FROM NIGHT NURSE FOR CONTINUITY OF CARE, PT IS STABLE ON BIPAP WITH O2 AT 86. PT IS ON BIPAP, SIDE LYING. PT HAS LH 20G SALINE LOCK, PT HAS A FUNGAL RASH ON STOMACH LOWER FOLDS. SAFETY MEASURE IN PLACE, WILL CONTINUE TO MONITOR.
[2020-09-14] MEDS: INSULIN LISPRO SLIDING SCALE 100 UNITS/ML VIAL SUBQ PRN (07:54)
[2020-09-14 08:00] VITALS: BP 129/64
--- NOTE | 2020-09-14 08:32 | NUR ---
EMERGENCY CONTACT: LEVI, [phone]
[2020-09-14] MEDS: BUDESONIDE 0.5 MG/2 ML NEBU INH SCH (08:37)
[2020-09-14] MEDS: ALBUTEROL SULFATE/IPRATROPIU 3 ML SOL IH SCH (08:37)
[2020-09-14] MEDS: INSULIN LANTUS 100 UNITS/ML 10 ML VIAL SUBQ SCH (09:17)
[2020-09-14] MEDS: DOCUSATE SODIUM 100 MG GELCAP PO SCH (09:18)
[2020-09-14] MEDS: FAMOTIDINE 20 MG TAB PO SCH (09:18)
[2020-09-14] MEDS: ENOXAPARIN 120 MG/0.8 ML SYR SUBQ SCH (09:19)
[2020-09-14] MEDS: DEXAMETHASONE 10 MG/ML VIAL IVP SCH (09:23)
--- NOTE | 2020-09-14 09:31 | NUR ---
ADMINISTERED SCHEDULED MEDICATION, MEDICATION EDUCATION PROVIDED. PT ON BIPAP, PT TOLERATED WELL. WILL CONTINUE TO MONITOR.
[2020-09-14 10:09] LABS: BASOPHILS # (AUTO) 0.2 K/uL (0.00-0.22); BASOPHILS % (AUTO) 1.2 % (0.0-2.0); EOSINOPHILS % (AUTO) 0.2 % (0.0-4.0); HEMATOCRIT 42.2 % (36-48); HEMOGLOBIN 13.5 g/dL (12.0-16.0); LYMPHOCYTES # (AUTO) 0.8 K/uL (2.5-16.5); LYMPHOCYTES % (AUTO) 5.8 % (20.5-51.1); MEAN CORPUSCULAR HEMOGLOBIN 26 pg (27-31); MEAN CORPUSCULAR HGB CONC 32 g/dL (33-37); MEAN CORPUSCULAR VOLUME 80.2 fL (80-94); MONOCYTES # (AUTO) 0.7 K/uL (0.8-1.0); MONOCYTES % (AUTO) 5.3 % (1.7-9.3); NEUTROPHILS % (AUTO) 87.5 % (42.2-75.2); PLATELET COUNT (AUTO) 536 K/uL (140-450); RED BLOOD CELL COUNT(AUTO) 5.26 MIL/uL (4.20-5.40); RED CELL DISTRIBUTION WIDTH 16.6 % (11.6-13.7); WHITE BLOOD COUNT (AUTO) 13.7 K/uL (4.8-10.8)
[2020-09-14 10:27] LABS: ANION GAP 18.5 (8-16); CARBON DIOXIDE 22.9 mmol/L (21-32); CREATININE 0.6 mg/dL (0.6-1.3); POTASSIUM 3.4 mmol/L (3.5-5.1)
--- NOTE | 2020-09-14 11:07 | NUR ---
DR FUNMILAYO STRANGE PT .
--- NOTE | 2020-09-14 11:37 | NUR ---
CONTACTED PATIENT'S EMERGENCY CONTACT TEL#: [phone], NO ANSWER, VM LEFT.
--- NOTE | 2020-09-14 11:57 | NUR ---
@1143 HRS: REPORTED TO [facility], SPOKE WITH Nehemiah BEACH, STATED THAT THEY DON'T MOVE TO FORWARD WITH THE ORGAN DONATION. [facility] # [id number]. @1148 HRS: CALLED [facility] DRUM BARKER OPERATOR, REPORTED, STATED A DEPUTY WILL CALL BACK FOR RELEASE OF BODY. HOUSE SUP AND ADMITTING MADE AWARE.
--- NOTE | 2020-09-14 15:24 | NUR ---
[facility], STATED THEY HAVE 10 CALLS AHEAD OF US AND WE HAVE TO WAIT FOR THE DEPUTY TO CALL US BACK. SIMONE GARCIA MADE AWARE.
--- NOTE | 2020-09-14 16:29 | NUR ---
[facility] CALLED BACK, NOTIFIED REGARDING PT'S PASSING. [facility] STATED THEY DO NOT HAVE ANY ARRANGEMENTS AND IS AGREEABLE TO PUT THE BODY IN THE FREEZER UNTIL THEY CAN GET A MORTUARY TO [place] AND TILE MAKING MACHINE OPERATOR THE BODY. SIMONE BARONE. Addendum: 09/14/20 at 1653 by Cynthia Lr RN [facility] TEL#; [phone]
--- NOTE | 2020-09-14 19:30 | NUR ---
RECEIVED REPORT FROM ROBYN MCBRIDE, AERODYNAMICS TEACHER NURSE TO FOLLOW UP CALL WITH SB ALTERATION WORKER'S OFFICE.
--- NOTE | 2020-09-14 21:32 | NUR ---
CALLED SB NAIL ASSEMBLY MACHINE OPERATOR'S OFFICE AT [phone], WILL LET DEPUTY CALL BACK HERE AT [facility] REGARDING BODY'S DISPOSITION.
--- NOTE | 2020-09-14 22:51 | NUR ---
FOLLOW UP CALL PLACED TO SB WELDER FIRST CLASS'S OFFICE, HOSPITAL DIRECTOR STATED "YOU'RE 15TH ON THE LINE, THE DEPUTY WILL JUST CALL YOU".
--- NOTE | 2020-09-15 02:12 | NUR ---
CALLED TUBE DRAWING SUPERVISOR'S OFFICE AGAIN TO FOLLOW UP ON BODY'S DISPOSITION, BROOM MAKER SAID, 'YOU JUST HAVE TO WAIT UNTIL THE TUBE DRAWING SUPERVISOR CALLS YOU".
--- NOTE | 2020-09-15 04:24 | NUR ---
RECEIVED CALL FROM CHANDNI RAMSEY FROM ASSISTANT CLINICAL NURSE MANAGER'S OFFICE AT 0415, GAVE ORDER TO RELEASED THE BODY AND TO REMOVE THERAPEUTIC EQUIPMENTS, NO NUMBER ISSUED.
== END 2020-09-14 18:00 | DRG 720 ==
LOC: MED 19:25 → MTU 22:32 → MMU 09-09 09:00
PROVIDERS: ADMIT Hospitalist; ATTEND Hospitalist
PROC: XW033E5 Introduction of Remdesivir Anti-infective into Peripheral Vein, Percutaneous Approach, New Technology Group 5 (ICD-10-PCS; principal; 2020-09-09)
PROC: XW13325 Transfusion of Convalescent Plasma (Nonautologous) into Peripheral Vein, Percutaneous Approach, New Technology Group 5 (ICD-10-PCS; 2020-09-09)
PROC: 5A09357 Assistance with Respiratory Ventilation, Less than 24 Consecutive Hours, Continuous Positive Airway Pressure (ICD-10-PCS; 2020-09-14)
DX: A41.9 Sepsis, unspecified organism (principal); U07.1 COVID-19; J96.01 Acute respiratory failure with hypoxia; E11.9 Type 2 diabetes mellitus without complications; Z88.5 Allergy status to narcotic agent; E87.6 Hypokalemia; Z88.8 Allergy status to other drugs, medicaments and biological substances; E66.01 Morbid (severe) obesity due to excess calories; Z68.42 Body mass index [BMI] 45.0-49.9, adult; B37.9 Candidiasis, unspecified; I10 Essential (primary) hypertension; Z82.49 Family history of ischemic heart disease and other diseases of the circulatory system; J12.82 Pneumonia due to coronavirus disease 2019
CPT/HCPCS: 36415; 36430; 36600; 71045; 80048; 80053; 81001; 82550; 82728; 82803; 82948; 83036; 83615; 83735; 83880; 84484; 85025; 85379; 85384; 85610; 85730; 86140; 86886; 86900; 86901; 87040; 87081; 87086; 87420; 87804; 93005; 93970; 94640; 96360; 99291; J0360; J1100; J1650; J1815; J2001; J2060; J3480; J7030; J7626; P9017; U0003